=== PATIENT | female | born 1995 | race Caucasian/White ===

== ENCOUNTER 2017-04-17 23:15 | Observation (INO) | payer BC ==
[~2017-04-17] VITALS: Ht 172.7 cm; Wt 61.8 kg
[2017-04-17] MEDS ORDERED: SODIUM CHLORIDE 0.9% 1000ML 1,000 ML IV STA (23:38)
[2017-04-17] MEDS ORDERED: ACETAMINOPHEN IV 100 ML IV STA (23:38)
[2017-04-17] MEDS ORDERED: ONDANSETRON INJ 2 MG/ML 2 ML VIAL IV STA (23:38)
[2017-04-17] MEDS ORDERED: BCPILLS PO (23:58)
[2017-04-18] VITALS (9 sets, daily range): BP systolic 96–110; BP diastolic 59–72; PULSE 57–83; TEMP 36.7–37.2; O2SAT 95–97; Ht 172.7 cm; Wt 61.8 kg
[2017-04-18 00:13] LABS: BASO % 0.1 %; BASO ABS # 0.01 K/uL (0-0.2); COMPLETE YES; EOS % 0.7 %; IG% 0.4 %; LYMPH % 9.9 %; LYMPH ABS # 1.66 K/uL (1.2-3.4); MEAN CELL VOLUME 91.7 fL (80-100); MEAN CORPUSCULAR HEMOGLOBIN 32.7 pg (25-34); MEAN CORPUSCULAR HGB CONC 35.6 g/dl (32-36); MEAN PLATELET VOLUME 9.2 fL (7.4-10.4); MONO % 5.7 %; NEUT % 83.2 %; PLATELET COUNT 264 K/uL (130-400); RED BLOOD COUNT 4.47 M/uL (4.2-5.4); WHITE BLOOD COUNT 16.78 K/uL (4.8-10.8)
[2017-04-18 00:24] LABS: URINE APPEARANCE CLOUDY (CLEAR); URINE BILIRUBIN NEG (NEG); URINE COLOR YELLOW; URINE EPITHELIAL CELL AUTO 20-30 /lpf (0-5); URINE NITRITE NEG (NEG); URINE PH 6.5 (4.5-7.5); URINE SPECIFIC GRAVITY 1.025 (1.000-1.030); UROBILINOGEN NEG (NEG); ZZUR CULT IF INDIC CLEAN CATCH NO
[2017-04-18 00:29] LABS: MANUAL MICROSCOPIC REQUIRED? NO; REVIEW REQ? NO
[2017-04-18 00:30] LABS: BUN/CREATININE RATIO 10.2 (10-20); CALCIUM 8.9 mg/dl (8.5-10.1); CREATININE 0.95 mg/dl (0.60-1.20); POTASSIUM 3.5 mmol/L (3.5-5.1)
[2017-04-18 00:33] LABS: ALB/GLOB RATIO 1.2 (0.9-2)
[2017-04-18 00:39] LABS: PREG INTERNAL NEGATIVE QC NEG CLEAR BACKGROUND; PREG INTERNAL POSITIVE QC POS CONTROL LINE
[2017-04-18] MEDS ORDERED: SODIUM CHLORIDE 0.9% 1000ML 1,000 ML IV STA (01:09)
[2017-04-18] MEDS ORDERED: MoRPHine SULFATE 4 MG/ML 1 ML CARP\\VIAL IV STA ×2 (01:10→03:16)
[2017-04-18] MEDS ORDERED: OPTIRAY 320 IV PRN (01:30)
[2017-04-18] MEDS ORDERED: ONDANSETRON INJ 2 MG/ML 2 ML VIAL IV STA (03:16)
[2017-04-18] MEDS ORDERED: CEFOXITIN SOD 1 GM VIAL IV STA (03:35)
--- NOTE | 2017-04-18 03:38 | EMERGENCY ROOM VISIT NOTE ---
History Report prepared by Rose: Keyon Tate Under the Supervision of: Dr. Lisette Enriquez D.O. First contact with patient: 23:31 Chief Complaint: ABDOMINAL PAIN Stated Complaint: EXTREME STOMACH PAIN, VOMITING History of Present Illness The patient is a 21 year old female who presents to the Emergency Room with complaints of abdominal pain and vomiting. Patient states this morning began to have a dull persistent abdominal pain mostly became worse throughout the day and more severe. Patient can feel nauseated and then had multiple episodes of vomiting. Patient is been unable to keep down any oral intake since then. Patient denies any new or different foods, recent sick contacts, recent trauma. 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 Patient with no prior surgical history. Patient states subjective fevers and chills, however did not measure her temperature. Patient states pain worse with any movement, feels most comfortable laying down with legs pulled in. Patient states pain in her lower central abdomen now feels sharp, however nonradiating. Denies any change in bowel or bladder function recently. Denies any prior history of similar pain. No family history of inflammatory bowel disease. Review of Systems See HPI for pertinent positives & negatives. A total of 10 systems reviewed and were otherwise negative. Past Medical & Surgical Medical Problems: (1) No Known Active Medical Problems Family History No pertinent family history stated. Social History Smoking Status: Never Smoker Occupation Status: student Current/Historical Medications Scheduled Control Pills ( Control Pills), 1 TAB PO DAILY Allergies Coded Allergies: Cat Dander (Verified Allergy, Intermediate, congestion, 04/17/17) Horse Dander (Verified Allergy, Unknown, congestion, 04/17/17) Physical Exam Vital Signs Date Time Temp Pulse Resp B/P (MAP) Pulse Ox O2 Delivery O2 Flow Rate FiO2 04/18/17 01:43 87 14 119/89 99 Room Air 04/17/17 23:21 36.7 75 19 122/88 98 Room Air Physical Exam GENERAL: alert, ill appearing, well nourished, no distress, non-toxic EYE EXAM: normal conjunctiva, PERRL and EOM's grossly intact OROPHARYNX: no exudate, no erythema, lips, buccal mucosa, and tongue normal and mucous membranes are moist NECK: supple, no nuchal rigidity, no adenopathy, non-tender LUNGS: Clear to auscultation. Normal chest wall mechanics HEART: no murmurs, S1 normal and S2 normal ABDOMEN: abdomen soft with suprapubic tenderness to palpation, normo-active bowel sounds, no masses, no rebound or guarding. BACK: Back is symmetrical on inspection and there is no deformity, no midline tenderness, no CVA tenderness. SKIN: no rashes and no bruising UPPER EXTREMITIES: upper extremities are grossly normal. LOWER EXTREMITIES: No pitting edema. NEURO EXAM: Normal sensorium, cranial nerves II-XII grossly intact, normal speech, no gross weakness of arms, no gross weakness of legs. Medical Decision & Procedures ER Provider Diagnostic Interpretation: CT results per statrad and my review. CT ABDOMEN & PELVIS: The appendix is fluid-filled. It is borderline distended measuring 9 mm in maximum diameter. No clear adjacent edema, but early appendicitis is still a possibility. Mild colonic fecal retention. No SBO. 2.4 cm right ovarian cysts is likely functional. Trace free pelvic fluid. No loculated abscess. Laboratory Results 04/17/17 23:40 Red Blood Count 4.47, Mean Corpuscular Volume 91.7, Mean Corpuscular Hemoglobin 32.7, Mean Corpuscular Hemoglobin Concent 35.6, Mean Platelet Volume 9.2, Neutrophils (%) (Auto) 83.2, Lymphocytes (%) (Auto) 9.9, Monocytes (%) (Auto) 5.7, Eosinophils (%) (Auto) 0.7, Basophils (%) (Auto) 0.1, Neutrophils # (Auto) 13.98, Lymphocytes # (Auto) 1.66, Monocytes # (Auto) 0.95, Eosinophils # (Auto) 0.12, Basophils # (Auto) 0.01 04/17/17 23:40 Test 04/17/17 23:40 04/17/17 23:45 White Blood Count 16.78 K/uL (4.8-10.8) Red Blood Count 4.47 M/uL (4.2-5.4) Hemoglobin 14.6 g/dL (12.0-16.0) Hematocrit 41.0 % (37-47) Mean Corpuscular Volume 91.7 fL (80-100) Mean Corpuscular Hemoglobin 32.7 pg (25-34) Mean Corpuscular Hemoglobin Concent 35.6 g/dl (32-36) Platelet Count 264 K/uL (130-400) Mean Platelet Volume 9.2 fL (7.4-10.4) Neutrophils (%) (Auto) 83.2 % Lymphocytes (%) (Auto) 9.9 % Monocytes (%) (Auto) 5.7 % Eosinophils (%) (Auto) 0.7 % Basophils (%) (Auto) 0.1 % Neutrophils # (Auto) 13.98 K/uL (1.4-6.5) Lymphocytes # (Auto) 1.66 K/uL (1.2-3.4) Monocytes # (Auto) 0.95 K/uL (0.11-0.59) Eosinophils # (Auto) 0.12 K/uL (0-0.5) Basophils # (Auto) 0.01 K/uL (0-0.2) RDW Standard Deviation 40.1 fL (36.4-46.3) RDW Coefficient of Variation 11.9 % (11.5-14.5) Immature Granulocyte % (Auto) 0.4 % Immature Granulocyte # (Auto) 0.06 K/uL (0.00-0.02) Anion Gap 10.0 mmol/L (3-11) Est Creatinine Clear Calc Drug Dose 91.4 ml/min Estimated GFR () 99.2 Estimated GFR (Non- 85.6 BUN/Creatinine Ratio 10.2 (10-20) Calcium Level 8.9 mg/dl (8.5-10.1) Total Bilirubin 0.6 mg/dl (0.2-1) Aspartate Amino Transf (AST/SGOT) 13 U/L (15-37) Alanine Aminotransferase (ALT/SGPT) 18 U/L (12-78) Alkaline Phosphatase 61 U/L (45-117) Total Protein 7.3 gm/dl (6.4-8.2) Albumin 4.0 gm/dl (3.4-5.0) Globulin 3.3 gm/dl (2.5-4.0) Albumin/Globulin Ratio 1.2 (0.9-2) Human Chorionic Gonadotropin, Qual NEG (NEG) Urine Color YELLOW Urine Appearance CLOUDY (CLEAR) Urine pH 6.5 (4.5-7.5) Urine Specific [place] 1.025 (1.000-1.030) Urine Protein NEG (NEG) Urine Glucose (UA) NEG (NEG) Urine Ketones TRACE (NEG) Urine Occult Blood NEG (NEG) Urine Nitrite NEG (NEG) Urine Bilirubin NEG (NEG) Urine Urobilinogen NEG (NEG) Urine Leukocyte Esterase NEG (NEG) Urine WBC (Auto) 1-5 /hpf (0-5) Urine RBC (Auto) 0-4 /hpf (0-4) Urine Hyaline Casts (Auto) 1-5 /lpf (0-5) Urine Epithelial Cells (Auto) 20-30 /lpf (0-5) Urine Bacteria (Auto) NEG (NEG) Laboratory results per my review. Medications Administered Medications (Trade) Dose Ordered Sig/Filipe Route Start Time Stop Time Status Last Admin Dose Admin Sodium Chloride 1,000 ml @ 999 mls/hr Q1H1M STAT IV 04/17/17 23:38 04/18/17 00:38 DC 04/18/17 00:00 999 MLS/HR Ondansetron HCl (Zofran Inj) 4 mg NOW STAT IV 04/17/17 23:38 04/17/17 23:41 DC 04/18/17 00:00 4 MG Acetaminophen 100 ml @ 400 mls/hr NOW STAT IV 04/17/17 23:38 04/17/17 23:52 DC 04/18/17 00:00 400 MLS/HR Sodium Chloride 1,000 ml @ 999 mls/hr Q1H1M STAT IV 04/18/17 01:09 04/18/17 02:09 DC 04/18/17 01:21 999 MLS/HR Morphine Sulfate (MoRPHine SULFATE INJ) 4 mg NOW STAT IV 04/18/17 01:10 04/18/17 01:11 DC 04/18/17 01:21 4 MG Morphine Sulfate (MoRPHine SULFATE INJ) 4 mg NOW STAT IV 04/18/17 03:16 04/18/17 03:17 DC 04/18/17 03:29 4 MG Ondansetron HCl (Zofran Inj) 4 mg NOW STAT IV 04/18/17 03:16 04/18/17 03:17 DC 04/18/17 03:28 4 MG Cefoxitin Sodium (Mefoxin IV) 1,000 mg NOW STAT IV 04/18/17 03:35 04/18/17 03:36 DC 04/18/17 03:49 1,000 MG ED Course 2333: The patient was evaluated in room B7. A complete history and physical exam was performed. 2338: Ordered Acetaminophen 100 mL @ 400 mL/hr IV, Zofran Inj 4 mg IV, Sodium Chloride 1000 ml @ 999 mls/hr IV. 0109: Ordered Sodium Chloride 1000 ml @ 999 mls/hr IV, Morphine Sulfate 4 mg IV. 0316: Ordered Zofran Inj 4 mg IV, Morphine Sulfate 4 mg IV. 0330: Upon reevaluation, the patient is resting comfortably. I discussed the findings and the treatment plan with the patient. She expresses agreement and understanding. I spoke with Dr. Christopher of General Surgery. The patient will be evaluated for further management. 0335: Ordered Mefoxin 1000 mg IV. Medical Decision Differential diagnosis: Etiologies such as appendicitis, diverticulitis, PUD, biliary pathology, UTI, pancreatitis, obstruction, mesenteric ischemia, aortic pathology, infections, inflammatory bowel disease, renal colic, as well as others were entertained. Patient with early appendicitis read on CAT scan by stat read overnight. Patient with leukocytosis likely from inflammatory/infectious process, however also could be from vomiting. Small ovarian cyst also noted, however story not consistent with acute rupture or torsion. Patient with no prior known history of cysts. Patient's worsening pain and other symptoms more concerning for evolving appendicitis. No evidence of abscess or perforation. No pathology otherwise noted. Consults Time Called: [phone] Consulting Physician: Dr. Christopher -General Surgery Returned Call: [phone] I reviewed the patient's case with Dr. Christopher. General Surgery will evaluate the patient for further management. Impression Primary Impression: Abdominal pain Additional Impressions: Vomiting Appendicitis Scribe Attestation The scribe's documentation has been prepared under my direction and personally reviewed by me in its entirety. I confirm that the note above accurately reflects all work, treatment, procedures, and medical decision making performed by me. Departure Information Dispostion Being Evaluated By Surgeon Referrals No Doctor, Assigned (PCP) Patient Instructions My [facility] Problem Qualifiers Primary Impression: Abdominal pain Abdominal location: lower abdomen, unspecified Qualified Codes: R10.30 - Lower abdominal pain, unspecified Additional Impressions: Vomiting Vomiting type: unspecified Vomiting Intractability: non-intractable Nausea presence: with nausea Qualified Codes: R11.2 - Nausea with vomiting, unspecified Appendicitis Appendicitis type: acute appendicitis Acute appendicitis type: with localized peritonitis Qualified Codes: K35.3 - Acute appendicitis with localized peritonitis
[2017-04-18] MEDS ORDERED: NURSING VERBAL MED ORDER ONE (03:45)
[2017-04-18] MEDS ORDERED: MoRPHine SULFATE 2 MG/ML CARP IV PRN (04:15)
[2017-04-18] MEDS ORDERED: ONDANSETRON INJ 2 MG/ML 2 ML VIAL IV PRN ×2 (04:15→08:15)
[2017-04-18] MEDS: LACTATED RINGER'S 1000ML 1,000 ML IV SCH ×2 (05:08→14:15)
[2017-04-18] MEDS ORDERED: IV FLUIDS COMPLETED PRN (05:45)
--- NOTE | 2017-04-18 06:25 | DIAGNOSTIC IMAGING REPORT ---
ABD/PELVIS IV CONTRAST ONLY CT DOSE: 308.01 mGy.cm HISTORY: Pain vomiting, lower abd pain TECHNIQUE: Multiaxial CT images of the abdomen and pelvis were performed following the use of intravenous contrast. A dose lowering technique was utilized adhering to the principles of ALARA. COMPARISON STUDY: None. FINDINGS: The lung bases are clear. The liver, spleen, gallbladder, pancreas, kidneys, and adrenal glands are within normal limits. No bowel wall thickening or obstruction. The pelvic organs are unremarkable. No suspicious lytic or blastic osseous lesions. The appendix is slightly distended at 9 mm. No significant periappendiceal infiltrative change. IMPRESSION: 9 mm slightly distended appendix is possibly of a low-grade appendicitis. No evidence for abscess collection or obstruction. Close clinical monitoring is suggested. The above report was generated using voice recognition software. It may contain grammatical, syntax or spelling errors. Electronically signed by: Brown Rosas M.D. 04/18/2017 6:23 AM Dictated Date/Time: 04/18/2017 6:22 AM
[2017-04-18] MEDS ORDERED: ROCURONIUM BROMIDE 10 MG/ML 5 ML VIAL IV ONE (07:10)
[2017-04-18] MEDS ORDERED: DEXAMETHASONE SOD INJ 4 MG/ML VIAL ONE (07:10)
[2017-04-18] MEDS ORDERED: NEOSTIGMINE METHYLSULFATE 5 MG/5 ML SYR ONE ×2 (07:10→08:35)
[2017-04-18] MEDS ORDERED: GLYCOPYRROLATE INJ 0.2 MG/ML VIAL ONE (07:10)
[2017-04-18] MEDS ORDERED: ONDANSETRON INJ 2 MG/ML 2 ML VIAL ONE ×2 (07:10→08:36)
[2017-04-18] MEDS ORDERED: LIDOCAINE HCL 2% 2 ML VIAL (20MG/ML) ONE (07:10)
[2017-04-18] MEDS ORDERED: PROPOFOL IV EMULSION 10 MG/ML 20 ML VIAL IV ONE (07:10)
[2017-04-18] MEDS ORDERED: MIDAZOLAM HCL 1 MG/ML 2ML VIAL ONE (07:11)
[2017-04-18] MEDS ORDERED: FENTANYL CITRATE INJ 50 MCG/1 ML 2 ML VIAL ONE (07:11)
[2017-04-18] MEDS ORDERED: BUPIVACAINE 0.5 % 5 MG/1 ML MPF 30ML VIAL ONE (07:21)
--- NOTE | 2017-04-18 07:54 | History and Physical ---
History & Physical Date & Time of Service: Apr 18, 2017 at 07:49 Chief Complaint: Appendicitis Primary Care Physician: Savita Gomez M.D. History of Present Illness Source: patient 21 yr old woman who presents with abdominal pain going on for 1 days duration. This started in her lower abdomen, more focused now on the right side. 8/10 in severity, constant, dull, aching. Worse with movement, activity. Associated nausea and vomiting. No fevers/ chills. No similar episodes. No change in bowel habits. No relieving factors other than pain medications. Last ate at 8pm yesterday evening. Past Medical/Surgical History No other medical history. PSHx: wisdom teeth stitches under jaw Family History no significant family history Social History Smoking Status: Never Smoker Occupational Status: student Allergies Coded Allergies: Cat Dander (Verified Allergy, Intermediate, congestion, 04/17/17) Horse Dander (Verified Allergy, Unknown, congestion, 04/17/17) Home Medications Scheduled Control Pills ( Control Pills), 1 TAB PO DAILY Review of Systems Constitutional: No fever, No chills, No weight loss Eyes: No problem reported ENT: No problem reported Respiratory: No problem reported Cardiovascular: No problem reported Abdomen: + pain, + nausea, + vomiting Musculoskeletal: No problem reported Genitourinary - Female: No problem reported Neurologic: No problem reported Psychiatric: No problem reported Endocrine: No problem reported Hematologic / Lymphatic: No problem reported Integumentary: No problem reported Allergic / Immunologic: + pet sensitivities Physical Exam Vital Signs Date Time Temp Pulse Resp B/P (MAP) Pulse Ox O2 Delivery O2 Flow Rate FiO2 04/18/17 07:02 36.8 57 18 100/67 (78) 95 Room Air 04/18/17 04:45 Room Air 04/18/17 03:58 73 18 107/72 97 Room Air 04/18/17 01:43 87 14 119/89 99 Room Air 04/17/17 23:21 36.7 75 19 122/88 98 Room Air General Appearance: WD/WN, no apparent distress Head: normocephalic, atraumatic Eyes: normal inspection ENT: hearing grossly normal Neck: supple, no JVD Respiratory/Chest: lungs clear, normal breath sounds, no respiratory distress Cardiovascular: regular rate, rhythm, no JVD, no murmur Abdomen/GI: normal bowel sounds, soft, no organomegaly, + tenderness (in RLQ with guarding) Back: normal inspection, no CVA tenderness Extremities/Musculoskelatal: normal inspection, no pedal edema 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, alert, oriented x 3 Skin: normal color, warm/dry Diagnostics Laboratory Results Results Past 24 Hours Test 04/17/17 23:40 04/17/17 23:45 Range/Units White Blood Count 16.78 4.8-10.8 K/uL Red Blood Count 4.47 4.2-5.4 M/uL Hemoglobin 14.6 12.0-16.0 g/dL Hematocrit 41.0 37-47 % Mean Corpuscular Volume 91.7 80-100 fL Mean Corpuscular Hemoglobin 32.7 25-34 pg Mean Corpuscular Hemoglobin Concent 35.6 32-36 g/dl Platelet Count 264 130-400 K/uL Mean Platelet Volume 9.2 7.4-10.4 fL Neutrophils (%) (Auto) 83.2 % Lymphocytes (%) (Auto) 9.9 % Monocytes (%) (Auto) 5.7 % Eosinophils (%) (Auto) 0.7 % Basophils (%) (Auto) 0.1 % Neutrophils # (Auto) 13.98 1.4-6.5 K/uL Lymphocytes # (Auto) 1.66 1.2-3.4 K/uL Monocytes # (Auto) 0.95 0.11-0.59 K/uL Eosinophils # (Auto) 0.12 0-0.5 K/uL Basophils # (Auto) 0.01 0-0.2 K/uL RDW Standard Deviation 40.1 36.4-46.3 fL RDW Coefficient of Variation 11.9 11.5-14.5 % Immature Granulocyte % (Auto) 0.4 % Immature Granulocyte # (Auto) 0.06 0.00-0.02 K/uL Sodium Level 137 136-145 mmol/L Potassium Level 3.5 3.5-5.1 mmol/L Chloride Level 103 98-107 mmol/L Carbon Dioxide Level 24 21-32 mmol/L Anion Gap 10.0 3-11 mmol/L Blood Urea Nitrogen 10 7-18 mg/dl Creatinine 0.95 0.60-1.20 mg/dl Est Creatinine Clear Calc Drug Dose 91.4 ml/min Estimated GFR () 99.2 Estimated GFR (Non- 85.6 BUN/Creatinine Ratio 10.2 10-20 Random Glucose 107 70-99 mg/dl Calcium Level 8.9 8.5-10.1 mg/dl Total Bilirubin 0.6 0.2-1 mg/dl Aspartate Amino Transf (AST/SGOT) 13 15-37 U/L Alanine Aminotransferase (ALT/SGPT) 18 12-78 U/L Alkaline Phosphatase 61 45-117 U/L Total Protein 7.3 6.4-8.2 gm/dl Albumin 4.0 3.4-5.0 gm/dl Globulin 3.3 2.5-4.0 gm/dl Albumin/Globulin Ratio 1.2 0.9-2 Human Chorionic Gonadotropin, Qual NEG NEG Urine Color YELLOW Urine Appearance CLOUDY CLEAR Urine pH 6.5 4.5-7.5 Urine Specific [place] 1.025 1.000-1.030 Urine Protein NEG NEG Urine Glucose (UA) NEG NEG Urine Ketones TRACE NEG Urine Occult Blood NEG NEG Urine Nitrite NEG NEG Urine Bilirubin NEG NEG Urine Urobilinogen NEG NEG Urine Leukocyte Esterase NEG NEG Urine WBC (Auto) 1-5 0-5 /hpf Urine RBC (Auto) 0-4 0-4 /hpf Urine Hyaline Casts (Auto) 1-5 0-5 /lpf Urine Epithelial Cells (Auto) 20-30 0-5 /lpf Urine Bacteria (Auto) NEG NEG Diagnostic Radiology CT scan shows early acute appendicitis Impression Assessment and Plan 21 yr old woman with early acute appendicitis. Discussed laparoscopic appendectomy with risks of bleeding, infection, conversion to open, postop abscess. Consent signed. Received cefoxitin already. For OR today. Advanced Directives Existing Living Will: No Existing Power of Optometric Technologist: No VTE Prophylaxis VTE Risk Assessment Done? Y/N: Yes Risk Level: Low
[2017-04-18] MEDS ORDERED: EpHEDrine SULFATE INJ 50 MG/ML AMP IV PRN (08:15)
[2017-04-18] MEDS ORDERED: ATROPINE SULFATE 0.1 MG/ML 5ML SYR IV PRN (08:15)
[2017-04-18] MEDS ORDERED: PHENYLEPHRINE 100MCG/ML 5ML SYR IV PRN (08:15)
[2017-04-18] MEDS ORDERED: SUCCINYLCHOLINE CHLORIDE 20 MG/ML 10 ML VIAL IV ONE (08:36)
[2017-04-18] MEDS ORDERED: KETOROLAC TROMETHAMINE 30 MG/ML VIAL ONE (08:39)
--- NOTE | 2017-04-18 08:53 | [facility] Post Operative Brief Note ---
Immediate Operative Summary Operative Date Apr 18, 2017. Pre-Operative Diagnosis acute appendicitis Post-Operative Diagnosis acute appendicitis Procedure(s) Performed Laparoscopic Appendectomy Surgeon Dr. Vivi Christopher Core Inserter Surgeon(s) None Estimated Blood Loss 5ML Findings acute suppurative nonperforated appendicitis Fluids (cc crystalloids) 1200 cc Specimens Permanent: A. appendix Drains none Anesthesia GET Complication(s) None Disposition Recovery Room / PACU
[2017-04-18] MEDS ORDERED: ONDA4TAB65 PO (08:57)
[2017-04-18] MEDS ORDERED: OXYC-57 PO (08:57)
--- NOTE | 2017-04-18 08:59 | Discharge Instructions ---
Discharge Instructions Date of Service Apr 18, 2017. Admission Reason for Admission: Appendicitis Discharge Discharge Diagnosis / Problem: acute appendicitis Discharge Goals Goal(s): Decrease discomfort Activity Recommendations Activity Limitations: resume your previous activity (walking/ stairs OK today) Lifting Limitations: no more than 10 pounds (for 2 wks) Exercise/Sports Limitations: gradually increase as tolerated (minimize for 2 wks) Shower/Bathe: tomorrow (remove outer gauze dressings prior to shower, leave steristrips x 7-10 days) Driving or Machine Use: resume 3 days after discharge (if off narcotics) . Current Hospital Diet Patient's current hospital diet: Clear Liquid Diet Discharge Diet Recommended Diet: Regular Diet (soups/ liquids if bloating persists) Procedures Procedures Performed: Laparoscopic Appendectomy Pending Studies Studies pending at discharge: no Medical Emergencies . Who to Call and When: Medical Emergencies: If at any time you feel your situation is an emergency, please call 911 immediately. . Non-Emergent Contact Non-Emergency issues call your: Surgeon Contact Number: call [phone] to make a 2 wk f/u appt Call Non-Emergent contact if: temperature is above 101.5, your pain is not controlled, your pain is worsening, your pain is unusual for you, your pain is concerning you, wound has increased drainage, wound has increased redness, wound has increased pain . "Provider Documentation" section prepared by Vivi Christopher. . VTE Core Measure Inpt VTE Proph given/why not?: SCD's [place] Drug Monitoring Program Search Results: patient reviewed within database
[2017-04-18] MEDS ORDERED: KETOROLAC TROMETHAMINE 15 MG/ML VIAL IV PRN (09:00)
[2017-04-18] MEDS ORDERED: OXYCODONE/ACETAMINOPHEN 5-325 TAB PO PRN ×2 (09:00)
[2017-04-18] MEDS ORDERED: ACETAMINOPHEN 325 MG TAB PO PRN (09:00)
--- NOTE | 2017-04-18 09:24 | OPERATIVE REPORT ---
DATE OF OPERATION: 04/18/2017 PREOPERATIVE DIAGNOSIS: Acute appendicitis. POSTOPERATIVE DIAGNOSIS: Same. OPERATIVE PROCEDURE: Laparoscopic appendectomy. SURGEON: Dr. Vivi Christopher. FRAMER: None. ANESTHESIA: General endotracheal anesthesia. ESTIMATED BLOOD LOSS: 5 mL. IV FLUIDS: 1200 mL. COMPLICATIONS: None. SPECIMENS: Appendix. OPERATIVE FINDINGS: Dilated inflamed appendix with suppurative changes. No evidence of perforation. INDICATIONS: Ms. Villegas is a 21-year-old woman who presented with acute appendicitis. She was consented regarding laparoscopic appendectomy. DESCRIPTION OF PROCEDURE: The patient received cefoxitin preoperatively. After the induction of general endotracheal anesthesia, she had placement of sequential compression devices. She was positioned with her left arm tucked and in Trendelenburg. Her abdomen was sterilely prepped and draped. A supraumbilical incision was made and a Veress needle was placed into the peritoneal cavity on the first pass. This was tested with the saline drop test. Pneumoperitoneum was established. Initial pressure was 1 mmHg and this was taken up to 15 mmHg. A 12-mm trocar was placed. Two additional trocars were placed under direct vision, a 5 in the left lower quadrant and a 5 in the midline pubic area. The appendix was easily visualized. This was grasped at its base and a window was created at the base of the appendix on the cecum and the appendix was divided off the cecum with a firing of the JULIA 45 purple load stapler. The appendiceal mesentery was taken with a second firing of the vascular load stapler. The appendix was placed in an Endobag and removed through the umbilical incision. The abdomen was irrigated and suctioned clear. Hemostasis was noted to be present. The pneumoperitoneum was released and the trocars removed. 30 mL of 0.5% Marcaine had been used for local anesthesia. The fascia at the umbilicus was closed with 0 Vicryl stitches placed anteriorly. The skin of all 3 incisions was closed with running subcuticular 4-0 Vicryl sutures. Steri-Strips and sterile dressings were applied. She was awakened and taken to recovery in stable condition. I attest to the content of the Intraoperative Record and any orders documented therein. Any exception s are noted below.
[2017-04-18] MEDS ORDERED: HYDROmorphone INJ 2 MG/ML SYR/VIAL ONE (09:31)
[2017-04-18] MEDS: HYDROmorphone INJ 2 MG/ML SYR/VIAL IV PRN ×2 (09:33→09:38)
--- NOTE | 2017-04-18 09:42 | Anesthesiology Progress Note ---
Anesthesia Post Op Note Date & Time Apr 18, 2017 at 09:42 Vital Signs Pain Intensity: 5 Vital Signs Past 12 Hours Date Time Temp Pulse Resp B/P (MAP) Pulse Ox O2 Delivery O2 Flow Rate FiO2 04/18/17 09:35 72 20 112/83 100 Room Air 04/18/17 09:25 70 20 114/84 100 Room Air 04/18/17 09:15 66 20 114/81 100 Oxymask 10 04/18/17 09:05 36.1 67 20 116/69 100 Oxymask 10 04/18/17 08:55 36.1 91 14 118/67 100 Oxymask 10 04/18/17 07:02 36.8 57 18 100/67 (78) 95 Room Air 04/18/17 04:45 Room Air 04/18/17 03:58 73 18 107/72 97 Room Air 04/18/17 01:43 87 14 119/89 99 Room Air 04/17/17 23:21 36.7 75 19 122/88 98 Room Air Notes Mental Status: alert / awake / arousable, participated in evaluation Pt Amnestic to Procedure: Yes Nausea / Vomiting: adequately controlled Pain: adequately controlled Airway Patency, RR, SpO2: stable & adequate BP & HR: stable & adequate Hydration State: stable & adequate Anesthetic Complications: no major complications apparent
[2017-04-18] MEDS ORDERED: CEFOXITIN IV 1,000 MG in DEXTROSE 5% 50ML 50 ML IV SCH (10:00)
--- NOTE | 2017-04-20 08:19 | Discharge Summary ---
Discharge Summary Date of Service Apr 18, 2017. Admission Date/Reason Apr 18, 2017 at 03:38 Appendicitis. Discharge Date/Disposition Apr 18, 2017 Home Diagnosis Principal Diagnosis: acute appendicitis Procedure(s) Performed laparoscopic appendectomy Medication Reconciliation New Medications: Ondansetron Hcl (Zofran) 4 Mg Tab 1 TAB PO Q6H PRN for Nausea, #10 TAB 1 Refill Oxycodone/Acetaminophen 5MG/325MG (Percocet 5MG/325MG) Tab 1-2 TABLETS PO Q4H PRN for Pain, #30 TAB Continued Medications: Control Pills ( Control Pills) Tab 1 TAB PO DAILY, TAB Admission Physical Exam As per Admitting History & Physical. Hospital Course Underwent uncomplicated laparoscopic appendectomy. Discharged home once tolerating PO with good pain control. Discharge Instructions Please refer to the electronic Patient Visit Report (Discharge Instructions) for additional information.
== END 2017-04-18 15:35 | disposition home or self-care (01) ==
LOC: C.EDB 23:17 → C.MSW 04-18 03:38 → ENRESERV 04-18 04:12
PROVIDERS: ADMIT Surgery; ATTEND Surgery
DX: K35.80 Unspecified acute appendicitis (principal); Z79.3 Long term (current) use of hormonal contraceptives